=== PATIENT | female | born 1955 | race Asian ===

== ENCOUNTER 2020-01-19 08:36 | Inpatient (IN) ==
--- NOTE | 2020-01-19 09:10 | Emergency Department Note ---
Impression & Plan Hypertensive encephalopathy, Hypertensive emergency, Nausea and vomiting, Generalized weakness, Blurring of vision ED Provider Note CHIEF COMPLAINT: Headache, vomiting, high blood pressure HISTORY OF PRESENTING ILLNESS: This is a 64-year-old female with past medical history significant for hypertension, migraines, and depression, who presents to the emergency department by private vehicle with her daughter with complaints of headaches, nausea and vomiting, dizziness, and high blood pressure for the past 1 week. The symptoms have been getting progressively worse and became severe today. The patient does not speak any Uzbek and only speaks Mandarin Tuval[place], the patient's daughter provides most of the history. A Mandarin mobile patrol officer was also utilized to verify pertinent parts of the history. The patient's daughter states that she has had ongoing issues with uncontrolled hypertension for the past 13 years, she is on medications that were prescribed by her doctor in [place] and she states she has been taking these but they do not seem to be helping. She was evaluated in an emergency department 3 times last year for the same symptoms, and she was treated for the vomiting and headaches at that time. The patient's daughter does not know if she has had any imaging of her brain in the past. She does note that they were told her migraine headaches were because of the high blood pressure. She currently takes metoprolol tartrate 25 mg once a day and valsartan 80 mg once a day, however she states that she has been taking 2 of these for the past week, and she took 3 of these yesterday and today. She also notes that she is taking a combination of flupentixol and melitracen for nausea and vomiting, but she noticed that these are also antidepressant medicines and she is not sure why she was prescribed these. She denies any neck pain or stiffness. She states that she has some intermittent blurring of her vision, but she is able to read text on her daughter's phone. She states that the nausea and vomiting get worse with position changes and she feels better with her eyes closed. She denies any chest pain, shortness of breath, palpitations, or syncope. She denies any abdominal pain or back pain. REVIEW OF SYSTEMS: A complete 10 point review of systems was reviewed with the patient with pertinent positives and negatives as per history of present illness. All else were negative. PAST MEDICAL HISTORY: Hypertension, migraines, depression SOCIAL HISTORY: Lives at home with her daughter, she is from [place] and has been visiting her daughter here for the past 6 months, she denies tobacco use ALLERGIES: No known allergies PHYSICAL EXAM: CONSTITUTIONAL: Pleasant and cooperative. Nontoxic-appearing and in no acute distress, but appears uncomfortable from the pain and is shielding her eyes from the light. Mildly dehydrated. HEENT: Normocephalic, atraumatic. PERRL, EOM unable to be performed due to poor cooperation from the patient, there was no obvious nystagmus. TMs normal bilaterally with no hemotympanum. Pharynx normal. Tacky mucous membranes. NECK: Supple, full active range of motion without discomfort. No cervical adenopathy. No nuchal rigidity or meningismus. RESPIRATORY: Clear to auscultation bilaterally with no wheezing, crackles, rh onchi or stridor. Equal expansion bilaterally. CARDIOVASCULAR: Regular rate and rhythm with no murmurs, rubs or gallops. Normal peripheral perfusion. No edema. GASTROINTESTINAL: Soft, nontender, nondistended. No palpable masses or HSM. Bowel sounds present in all quadrants. MUSCULOSKELETAL: Full range of motion of all joints without discomfort. INTEGUMENTARY: No rash or other significant dermatologic conditions noted. NEUROLOGIC: Alert and oriented X 4 with normal affect. Cranial nerves II-XII grossly intact, no facial droop. No pronator drift. Luzvee-suku-[id number] testing intact. 5/5 strength in all 4 extremities. Sensation intact light touch in all 4 extremities. Generalized weakness with no focal deficit noted. ED COURSE AND MEDICAL DECISION MAKING: CC: Patient presenting with complaint of headache, vomiting, high blood pressure DIFFERENTIAL DIAGNOSIS: Includes, but not limited to hypertensive urgency/emergency, hypertensive encephalopathy, migraine headache, tension head ache, intracranial hemorrhage, cerebrovascular accident, electrolyte abnormality, thyroid abnormality, acute coronary syndrome, medication side effect, poor compliance with medication, among others. INTERPRETATION OF LABS: No leukocytosis, no anemia, normal platelets, hypokalemia, hyponatremia, and mild hypochloremia, normal renal function, normal liver enzymes. Negative troponin. Coagulation factors within normal limits. TSH within normal limits. UA shows 5-10 WBCs with 4+ bacteria, urine culture pending. IMAGING: HEAD CT NONCONTRAST CT DOSE: 978.74 mGy.cm HISTORY: Headache TECHNIQUE: Multiaxial CT images of the head were performed without the use of intravenous contrast. Automated exposure control was utilized for this study. A dose lowering technique was utilized adhering to the principles of ALARA. Comparison: None. Findings: The paranasal sinuses and mastoid air cells are clear. The calvarium and skull base are intact. The ventricles and sulci are within normal limits. There is no mass, hematoma, midline shift, or acute infarct. Impression: No acute intracranial abnormality. ----- HEAD & NECK CTA HISTORY: Headaches. Pt c/o hypertension urgency TECHNIQUE: Multiaxial CT images of the head were performed following the intravenous administration of contrast to evaluate the major cerebral vessels. Multiaxial CT images of the neck were also performed following the intravenous administration of contrast to evaluate the major cervical vessels. Maximum intensity projection images were also obtained. A dose lowering technique was utilized adhering to the principles of ALARA. COMPARISON: None. FINDINGS: There is no mass, hematoma, midline shift, or acute infarct. Visualized intracranial internal carotid arteries, distal vertebral arteries, and basilar artery are widely patent. There is no significant stenosis, occlusion, or aneurysm seen within the bilateral ACAs, MCAs, or business banker. The aortic arch and proximal great vessels are widely patent. There is no significant stenosis, occlusion, or dissection identified within the bilateral common carotid, internal carotid, or vertebral arteries. Mild calcified plaque at the aortic arch. Slightly hypoplastic right vertebral artery comparison to the left. Mild calcified plaque within the bilateral carotid siphons. IMPRESSION: 1. No significant stenosis, occlusion, or aneurysm within the [place]. 2. No significant stenosis, occlusion, or dissection identified within the carotid or vertebral arteries. EKG: Shows sinus bradycardia with a rate of 58 bpm, normal intervals, no ST or T wave abnormalities, no ectopy by my interpretation. No previous EKGs available for comparison. MEDICATION RECONCILIATION: I attest that I have personally reviewed the patient's current medication list. INITIAL VITAL SIGNS REVIEW: I reviewed the patient's initial vital signs and interpret them as follows: T: Afebrile; BP: Hypertensive; HR: Within normal limits; RR: Within normal limits; Pulse Ox: Within normal limits on room air. Blood pressure screening: The patient was found to have an elevated blood pressure and was admitted to the inpatient team for further management. MDM SUMMARY: Patient was evaluated at bedside, history and physical exam performed. Patient speaks only Mandarin [place], her daughter provided some translation as well as the translation tablet. Patient is alert and oriented, appears uncomfortable from the headache and is shielding her eyes from the light. She is very photophobic on pupillary exam. She was not able to cooperate with extraocular movements due to her discomfort. She complains of some blurry vision, but was able to read some words on her daughter's phone without much difficulty. She is able to distinguish between 1 and 2 fingers. No focal neurologic deficits noted on exam. Orders were placed at bedside for labs, UA, migraine cocktail with IV fluid bolus and IV Compazine, IV Benadryl, and IV Tylenol, EKG, CT of the head, CTA of the head and neck to evaluate for headache and vomiting. After confirming the patient's medications and noting that she is on metoprolol, 5 mg IV metoprolol was ordered to treat the elevated blood pressure. Patient discussed with Dr. Serrato, who agrees with my assessment, plan, and disposition. Labs and imaging reviewed as above, labs are notable for some electrolyte abnormalities including hypokalemia, hyponatremia and mild hypochloremia. Renal function is normal. There is no leukocytosis or anemia and platelets are normal. Troponin is negative. TSH is within normal limits. UA may be infection versus contaminated specimen, urine culture is pending. The patient denies any urinary symptoms and does not have any leukocytosis or fevers, will hold off on any treatment for now. CT and CTA imaging of the head and neck are unremarkable. EKG is negative for any acute ischemic changes. The patient had a transient improvement in her blood pressure after the IV metoprolol, however the blood pressure spiked back up and she continues to be symptomatic. She does note that her headache and nausea are improved. She did seem to have some mild extrapyramidal symptoms that were suspected to be related to the Compazine, this seems to be improving after the IV Benadryl. Potassium is being repleted with 40 mEq p.o. and 20 mEq IV. Her symptoms seem most consistent with a hypertensive urgency/emergency, and I did feel that she would benefit from admission. I spoke with Dr. Muse, [facility] Hospitalist, who agrees to evaluate the patient for admission. Patient reassessed multiple times throughout ED stay, she and her daughter were updated on all results and plan for admission, they verbalized understanding and were agreeable to this plan. The patient was stable at time of admission. The chart was completed utilizing [employer] Speech voice recognition software. Grammatical errors, random word insertions, pronoun errors, and incomplete sentences are an occasional consequence of this system due to software limitations, ambient noise, and hardware issues. Any formal questions or concerns about the content, text, or information contained within the body of this dictation should be directly addressed to the nurse practitioner for clarification. Past Med/Surg History Medical History (Updated 01/19/20 @ 17:40 by MARCELO Foster) Chronic nausea Uncontrolled hypertension Social History Preferred Language: Mandarin [place] Communication Ability: mandarin Production Material Coordinator Required: Yes Beliefs That Will Affect Care: None Current Living Situation: Family Other Information That Helps Us Care for You: No Feels Safe at Home: Yes Safety Concerns: Feels Safe At This Time Smoking Status: Never smoker Hx Alcohol Use: No Hx Substance Use: No Allergies Allergies Allergy/AdvReac Type Severity Reaction Status Date / Time No Known Allergies Allergy Unverified 01/19/20 11:31 Home Meds Home Medications Medication Instructions Recorded Confirmed metoprolol tartrate 12.5 mg PO BID 01/19/20 01/19/20 simvastatin 20 mg PO HS 01/19/20 01/19/20 valsartan 80 mg PO DAILY 01/19/20 01/19/20 Results & Data (ED) Vital Signs Vital Signs - 24 hr 01/19/20 08:41 01/19/20 09:39 01/19/20 10:55 Temperature 36.8 C Temperature Source Oral Pulse Rate 86 75 Pulse Rate [Apical] 66 Respiratory Rate 16 17 Blood Pressure 187/115 H 220/162 H Blood Pressure [Right Arm] 212/122 H Blood Pressure Mean 139 Blood Pressure Mean [Right Arm] 152 Pulse Oximetry 98 96 Oxygen Delivery Method Room Air Room Air Sepsis Recent Fever Within 48 Hours No Sepsis New/Unexplained Change in Mental Status No Sepsis Action Taken by Nursing No Action Required 01/19/20 11:02 Temperature Temperature Source Pulse Rate Pulse Rate [Apical] Respiratory Rate Blood Pressure Blood Pressure [Right Arm] 185/108 H Blood Pressure Mean Blood Pressure Mean [Right Arm] 133 Pulse Oximetry Oxygen Delivery Method Sepsis Recent Fever Within 48 Hours Sepsis New/Unexplained Change in Mental Status Sepsis Action Taken by Nursing Laboratory Data Result diagrams: 01/19/20 09:00 05/01/20 09:00 Lab Results 01/19/20 01/19/20 01/19/20 Range/Units 09:00 09:00 09:00 WBC 7.67 (4.8-10.8) K/uL RBC 4.58 (4.2-5.4) M/uL Hgb 15.0 (12.0-16.0) g/dL Hct 42.3 (37-47) % MCV 92.4 (80-100) fL MCH 32.8 (25-34) pg MCHC 35.5 (32-36) g/dL RDW Std Deviation 39.5 (36.4-46.3) fL RDW Coeff of [place] 11.7 (11.5-14.5) % Plt Count 291 (130-400) K/uL MPV 8.7 (7.4-10.4) fL Immature Gran % (Auto) 0.1 % Neut % (Auto) 74.0 % Lymph % (Auto) 20.5 % [place] % (Auto) 4.6 % Eos % (Auto) 0.5 % Baso % (Auto) 0.3 % Immature Gran # (Auto) 0.01 (0.00-0.02) K/uL Neut # (Auto) 5.68 (1.4-6.5) K/uL Lymph # (Auto) 1.57 (1.2-3.4) K/uL [place] # (Auto) 0.35 (0.11-0.59) K/uL Eos # (Auto) 0.04 (0-0.5) K/uL Baso # (Auto) 0.02 (0-0.2) K/uL PT 10.8 (9.0-12.0) Seconds INR 1.0 (0.9-1.1) APTT 28.5 (21.0-31.0) Seconds PTT Ratio 1.0 Sodium 130 L (136-145) mmol/L Potassium 3.1 L (3.5-5.1) mmol/L Chloride 96 L (98-107) mmol/L Carbon Dioxide 26 (21-32) mmol/L Anion Gap 8.0 (3-11) BUN 7 (7-18) mg/dl Creatinine 0.69 (0.6-1.2) mg/dl Est Cr Clr Drug Dosing 59.9 ml/min Est GFR ( Amer) 107.4 Est GFR (Non-Af Amer) 92.6 BUN/Creatinine Ratio 10.2 (10-20) Glucose 132 H (70-99) mg/dl Calcium 9.2 (8.5-10.1) mg/dl Magnesium 2.3 (1.8-2.4) mg/dl Total Bilirubin 0.3 (0.2-1) mg/dl AST 21 (15-37) U/L ALT 32 (12-78) U/L Alkaline Phosphatase 96 (45-117) U/L Troponin I < 0.015 (0-0.045) ng/ml Total Protein 8.8 H (6.4-8.2) gm/dl Albumin 4.1 (3.4-5.0) gm/dl Globulin 4.7 H (2.5-4.0) gm/dl Albumin/Globulin Ratio 0.9 (0.9-2) TSH 1.700 (0.300-4.500) uIu/ml Urine Color Urine Appearance (Clear) Urine pH (4.5-7.5) Ur Specific [place] (1.000-1.030) Urine Protein (Negative) Urine Glucose (UA) (Negative) Urine Ketones (Negative) Urine Blood (Negative) Urine Nitrite (Negative) Urine Bilirubin (Negative) Urine Urobilinogen (Negative) Ur Leukocyte Esterase (Negative) Urine WBC (Auto) (0-5) /hpf Urine RBC (Auto) (0-4) /hpf U Hyaline Cast (Auto) (0-5) /lpf U Epithel Cells (Auto) (0-5) /lpf Urine Bacteria (Auto) (Negative) 01/19/20 Range/Units 10:05 WBC (4.8-10.8) K/uL RBC (4.2-5.4) M/uL Hgb (12.0-16.0) g/dL Hct (37-47) % MCV (80-100) fL MCH (25-34) pg MCHC (32-36) g/dL RDW Std Deviation (36.4-46.3) fL RDW Coeff of [place] (11.5-14.5) % Plt Count (130-400) K/uL MPV (7.4-10.4) fL Immature Gran % (Auto) % Neut % (Auto) % Lymph % (Auto) % [place] % (Auto) % Eos % (Auto) % Baso % (Auto) % Immature Gran # (Auto) (0.00-0.02) K/uL Neut # (Auto) (1.4-6.5) K/uL Lymph # (Auto) (1.2-3.4) K/uL [place] # (Auto) (0.11-0.59) K/uL Eos # (Auto) (0-0.5) K/uL Baso # (Auto) (0-0.2) K/uL PT (9.0-12.0) Seconds INR (0.9-1.1) APTT (21.0-31.0) Seconds PTT Ratio Sodium (136-145) mmol/L Potassium (3.5-5.1) mmol/L Chloride (98-107) mmol/L Carbon Dioxide (21-32) mmol/L Anion Gap (3-11) BUN (7-18) mg/dl Creatinine (0.6-1.2) mg/dl Est Cr Clr Drug Dosing ml/min Est GFR ( Amer) Est GFR (Non-Af Amer) BUN/Creatinine Ratio (10-20) Glucose (70-99) mg/dl Calcium (8.5-10.1) mg/dl Magnesium (1.8-2.4) mg/dl Total Bilirubin (0.2-1) mg/dl AST (15-37) U/L ALT (12-78) U/L Alkaline Phosphatase (45-117) U/L Troponin I (0-0.045) ng/ml Total Protein (6.4-8.2) gm/dl Albumin (3.4-5.0) gm/dl Globulin (2.5-4.0) gm/dl Albumin/Globulin Ratio (0.9-2) TSH (0.300-4.500) uIu/ml Urine Color Yellow Urine Appearance Clear (Clear) Urine pH 8.5 H (4.5-7.5) Ur Specific [place] 1.010 (1.000-1.030) Urine Protein Negative (Negative) Urine Glucose (UA) Negative (Negative) Urine Ketones Negative (Negative) Urine Blood Negative (Negative) Urine Nitrite Negative (Negative) Urine Bilirubin Negative (Negative) Urine Urobilinogen Negative (Negative) Ur Leukocyte Esterase Trace H (Negative) Urine WBC (Auto) 5-10 H (0-5) /hpf Urine RBC (Auto) 0-4 (0-4) /hpf U Hyaline Cast (Auto) 0 (0-5) /lpf U Epithel Cells (Auto) 5-10 H (0-5) /lpf Urine Bacteria (Auto) 4+ H (Negative) Administered Medications Discontinued Medications Amlodipine Besylate (Norvasc) 5 mg PO NOW ONE Stop: 01/19/20 11:23 Last Admin: 01/19/20 12:08 Dose: 5 mg Documented by: [id number] Diphenhydramine HCl (Benadryl) 50 mg IV NOW STA Stop: 01/19/20 09:49 Last Admin: 01/19/20 10:26 Dose: 50 mg Documented by: [id number] Famotidine (Pepcid) 20 mg PO NOW STA Stop: 01/19/20 13:49 Last Admin: 01/19/20 14:26 Dose: 20 mg Documented by: [id number] Sodium Chloride (Nss 1000ml) 1,000 mls @ 999 mls/hr IV .Q1H1M HENRIQUE Stop: 01/19/20 10:30 Last Infusion: 01/19/20 13:39 Dose: 0 mls/hr Documented by: [id number] Admin: 01/19/20 10:36 Dose: 999 mls/hr Documented by: [id number] Potassium Chloride (K Kyle / Wtr) 10 meq in 100 mls @ 100 mls/hr IV Q1H HENRIQUE Stop: 01/19/20 11:59 Last Infusion: 01/19/20 13:39 Dose: 0 mls/hr Documented by: [id number] Admin: 01/19/20 11:34 Dose: 100 mls/hr Documented by: [id number] Infusion: 01/19/20 11:31 Dose: 100 mls/hr Documented by: [id number] Admin: 01/19/20 10:31 Dose: 100 mls/hr Documented by: [id number] Acetaminophen (Ofirmev) 1,000 mg in 100 mls @ 400 mls/hr IV NOW STA Stop: 01/19/20 10:02 Last Infusion: 01/19/20 10:36 Dose: 0 mls/hr Documented by: [id number] Admin: 01/19/20 10:26 Dose: 400 mls/hr Documented by: [id number] Magnesium Sulfate/Dextrose (Magnesium Sulfate / D5w) 1 gm in 100 mls @ 100 mls/hr IV ONE ONE Stop: 01/19/20 10:47 Last Infusion: 01/19/20 11:31 Dose: 0 mls/hr Documented by: [id number] Admin: 01/19/20 10:29 Dose: 100 mls/hr Documented by: [id number] Ioversol (Optiray 320 125ml) 120 ml IV ONCE PRN PRN Reason: Interaction Checking Stop: 01/23/20 10:11 Last Admin: 01/19/20 10:13 Dose: 120 ml Documented by: [id number] Labetalol HCl (Normodyne) 20 mg IV ONCE STA Stop: 01/19/20 09:31 Last Admin: 01/19/20 09:39 Dose: Not Given Documented by: [id number] Metoprolol Tartrate (Lopressor) 5 mg IV NOW STA Stop: 01/19/20 09:32 Last Admin: 01/19/20 09:39 Dose: 5 mg Documented by: [id number] Potassium Chloride (Klor-Con M20) 40 meq PO NOW STA Stop: 01/19/20 09:48 Last Admin: 01/19/20 10:23 Dose: 40 meq Documented by: [id number] Prochlorperazine (Compazine) 10 mg IV NOW STA Stop: 01/19/20 09:20 Last Admin: 01/19/20 09:39 Dose: 10 mg Documented by: [id number] Discharge Plan Visit Data *Final* Discharge Date/Time: 01/19/20 11:56 Chief Complaint: Hypertension Stated Complaint: HIGH BLOOD PRESSURE, VOMITING ED Provider: Moy Serrato ED Midlevel Provider: Milagro Murphy Discharge Problem: Hypertensive encephalopathy, Hypertensive emergency, Nausea and vomiting, Generalized weakness, Blurring of vision Patient Disposition: Admitted As Inpatient Discharge Instructions Interventions: ED Discharge Assessment Last Done: 01/19/20 11:56 Discharge Problem: Nausea and vomiting Qualifiers: Vomiting type: unspecified Vomiting Intractability: intractable Qualified Code(s): R11.2 - Nausea with vomiting, unspecified
[2020-01-19] MEDS ORDERED: PROCHLORPERAZINE 5 MG/ML 2 ML VIAL IV STA (09:19)
[2020-01-19] MEDS ORDERED: SODIUM CHLORIDE 0.9% 1000ML 1,000 ML IV SCH (09:30)
[2020-01-19] MEDS ORDERED: LABETALOL HCL IV 5 MG/ML 20ML IV STA (09:30)
[2020-01-19] MEDS ORDERED: METOPROLOL TARTRATE 1 MG/ML VIAL IV STA (09:31)
[2020-01-19 09:33] LABS: Basophils # (auto) 0.02 K/uL (0-0.2); Basophils % (auto) 0.3 %; Eosinophils # (auto) 0.04 K/uL (0-0.5); Eosinophils % (auto) 0.5 %; Hematocrit (blood only) 42.3 % (37-47); Immature Granulocytes # (auto) 0.01 K/uL (0.00-0.02); Immature Granulocytes % (auto) 0.1 %; Lymphocytes # (auto) 1.57 K/uL (1.2-3.4); Lymphocytes % (auto) 20.5 %; Mean Corpuscular Hemoglobin 32.8 pg (25-34); Mean Corpuscular Hgb Conc 35.5 g/dL (32-36); Mean Corpuscular Volume 92.4 fL (80-100); Mean Platelet Volume 8.7 fL (7.4-10.4); Monocytes # (auto) 0.35 K/uL (0.11-0.59); Monocytes % (auto) 4.6 %; Neutrophils # (auto) 5.68 K/uL (1.4-6.5); Platelet Count 291 K/uL (130-400); RDW Coefficient of Variation 11.7 % (11.5-14.5); RDW Standard Deviation 39.5 fL (36.4-46.3); Red Blood Count 4.58 M/uL (4.2-5.4); White Blood Count 7.67 K/uL (4.8-10.8)
[2020-01-19 09:42] LABS: Albumin Level 4.1 gm/dl (3.4-5.0); BUN Creatinine Ratio 10.2 (10-20); Blood Urea Nitrogen 7 mg/dl (7-18); Calcium 9.2 mg/dl (8.5-10.1); Carbon Dioxide 26 mmol/L (21-32); Chloride 96 mmol/L (98-107); Creatinine Clr Calc Pharmacy 59.9 ml/min; Est GFR (African American) 107.4; Est GFR (Non-African American) 92.6; Glucose 132 mg/dl (70-99); Magnesium 2.3 mg/dl (1.8-2.4); Potassium 3.1 mmol/L (3.5-5.1); Sodium 130 mmol/L (136-145)
[2020-01-19] MEDS ORDERED: POTASSIUM CHLORIDE 20 MEQ TABCR PO STA (09:47)
[2020-01-19] MEDS ORDERED: ACETAMINOPHEN 1,000 MG/100 ML VIAL IV STA (09:48)
[2020-01-19] MEDS ORDERED: DiphenhydrAMINE HCL 50 MG/ML VIAL IV STA (09:48)
[2020-01-19] MEDS ORDERED: MAGNESIUM SULFATE / D5W 1 GM/100 ML BAG IV ONE (09:48)
[2020-01-19 09:50] LABS: Partial Thromboplastin Time 28.5 Seconds (21.0-31.0); Prothrombin Time 10.8 Seconds (9.0-12.0)
[2020-01-19 09:52] LABS: Alanine Aminotransferase 32 U/L (12-78); Albumin Globulin Ratio 0.9 (0.9-2); Alkaline Phosphatase 96 U/L (45-117); Aspartate Aminotransferase 21 U/L (15-37); Bilirubin,Total 0.3 mg/dl (0.2-1); Globulin 4.7 gm/dl (2.5-4.0); Total Protein 8.8 gm/dl (6.4-8.2); Troponin I < 0.015 ng/ml (0-0.045)
[2020-01-19] MEDS ORDERED: OPTIRAY 320 125ml IV PRN (10:12)
[2020-01-19 10:24] LABS: Appearance Urine Clear (Clear); Bacteria Urine Automated 4+ (Negative); Bilirubin Urine Negative (Negative); Blood Urine Negative (Negative); Cast Urine Automated 0 /lpf (0-5); Color Urine Yellow; Glucose Urine UA Negative (Negative); Ketones Urine Negative (Negative); Leukocyte Esterase Urine Trace (Negative); Nitrite Urine Negative (Negative); Protein Urine Negative (Negative); RBC Urine Automated 0-4 /hpf (0-4); Urobilinogen Urine Negative (Negative); pH Urine 8.5 (4.5-7.5)
--- NOTE | 2020-01-19 10:24 | CT Scan Report ---
HEAD CT NONCONTRAST CT DOSE: 978.74 mGy.cm HISTORY: Headache TECHNIQUE: Multiaxial CT images of the head were performed without the use of intravenous contrast. A utomated exposure control was utilized for this study. A dose lowering technique was utilized adheri ng to the principles of ALARA. Comparison: None. Findings: The paranasal sinuses and mastoid air cells are clear. The calvarium and skull base are int act. The ventricles and sulci are within normal limits. There is no mass, hematoma, midline shift, or acute infarct. Impression: No acute intracranial abnormality. ACT 112: Negative or not required by law. Electronically signed by: Ricardo May M.D. 01/19/2020 10:22 AM
--- NOTE | 2020-01-19 10:29 | CT Scan Report ---
HEAD & NECK CTA HISTORY: Headaches. Pt c/o hypertension urgency TECHNIQUE: Multiaxial CT images of the head were performed following the intravenous administration o f contrast to evaluate the major cerebral vessels. Multiaxial CT images of the neck were also perform ed following the intravenous administration of contrast to evaluate the major cervical vessels. Maxim um intensity projection images were also obtained. A dose lowering technique was utilized adhering to the principles of ALARA. COMPARISON: None. FINDINGS: There is no mass, hematoma, midline shift, or acute infarct. Visualized intracranial internal carotid arteries, distal vertebral arteries, and basilar artery are widely patent. There is no significant s tenosis, occlusion, or aneurysm seen within the bilateral ACAs, MCAs, or varnish dipper. The aortic arch and proximal great vessels are widely patent. There is no significant stenosis, occ lusion, or dissection identified within the bilateral common carotid, internal carotid, or vertebral arteries. Mild calcified plaque at the aortic arch. Slightly hypoplastic right vertebral artery claudine rison to the left. Mild calcified plaque within the bilateral carotid siphons. IMPRESSION: 1. No significant stenosis, occlusion, or aneurysm within the [place]. 2. No significant stenosis, occlusion, or dissection identified within the carotid or vertebral arter ies. ACT 112: Negative or not required by law. Electronically signed by: Ricardo May M.D. 01/19/2020 10:34 AM
--- NOTE | 2020-01-19 10:29 | CT Scan Report ---
HEAD & NECK CTA HISTORY: Headaches. Pt c/o hypertension urgency TECHNIQUE: Multiaxial CT images of the head were performed following the intravenous administration o f contrast to evaluate the major cerebral vessels. Multiaxial CT images of the neck were also perform ed following the intravenous administration of contrast to evaluate the major cervical vessels. Maxim um intensity projection images were also obtained. A dose lowering technique was utilized adhering to the principles of ALARA. COMPARISON: None. FINDINGS: There is no mass, hematoma, midline shift, or acute infarct. Visualized intracranial internal carotid arteries, distal vertebral arteries, and basilar artery are widely patent. There is no significant s tenosis, occlusion, or aneurysm seen within the bilateral ACAs, MCAs, or mechanical systems design engineer. The aortic arch and proximal great vessels are widely patent. There is no significant stenosis, occ lusion, or dissection identified within the bilateral common carotid, internal carotid, or vertebral arteries. Mild calcified plaque at the aortic arch. Slightly hypoplastic right vertebral artery claudine rison to the left. Mild calcified plaque within the bilateral carotid siphons. IMPRESSION: 1. No significant stenosis, occlusion, or aneurysm within the [place]. 2. No significant stenosis, occlusion, or dissection identified within the carotid or vertebral arter ies. ACT 112: Negative or not required by law. Electronically signed by: Ricardo May M.D. 01/19/2020 10:34 AM
[2020-01-19] MEDS: POTASSIUM CHLORIDE / WTR 10 MEQ/100 ML PLCT IV SCH ×2 (10:31→11:34)
--- NOTE | 2020-01-19 11:21 | History & Physical Report ---
Date of Service January 19, 2020 Assessment & Plan (1) Hypertensive encephalopathy: Encephalopathy due to headache, nausea and vomiting for the last week. No other sign of end organ damage from labs Amlodipine 5mg PO daily now. Continue QAM. Will avoid thiazide diuretics given current hypokalemia Since she plans on going back to [place] will continue on her usual metoprolol rather than switching to carvedilol. Dose dependant on heart rate. Continue valsartan 160 mg PO daily (previously on 80mg PO daily but she had already increased this for the last 2 days). (2) Hypertensive emergency: as above (3) Blurring of vision: appears to now be resolved. Suspected secondary to above (4) Hyperlipidemia: Simvastatin 20 mg HS ([place] home medication), will hold currently due to weakness (5) Generalized weakness: PT/OT evals prior to discharge (6) Nausea and vomiting: I am unclear on her [place] medication for this as translated to Droperidol 0.5mg and Mexiletine combination medication which does not exist in the . Will prescribe ondansetron 4mg IV q6h PRN and recommend she is prescribed PO dose outpatient as she is staying in the [place] pending flights resuming to [place]. (7) DVT prophylaxis: SCDs Given likely short stay will avoid chemical VTE prophyalxis currently Admission and Anticipated Discharge Date Admission Date: 01/19/2020 Anticipated date of discharge: 01/20/20 History of Present Illness Chief Complaint: Headache, vision blurring, nausea, vomiting Primary Care Provider: NO PCP Angela Vieyra is a 64 year old female who presented to the ER with 1 week history of headache, nausea, vomiting. History is somewhat limited as she is a non-Setsw[place] speaker (speaks Mandarin) but is here with her daughter who is translating in addition to using an truck rental clerk with the iPad in the ER. Her daughter notes a problem with hypertension for approximately 30 years which has always been difficult to control but she takes medication for this which she has from [place]. Her mother was supposed to travel back to [place] 2 weeks from now where she resides but her flight was cancelled due to COVID-19 therefore she is unsure how long she will stay in the [place]. For the last 4 years her mother has had a problem with nausea and vomiting for which she takes an additional medication daily (translated to Droperidol 0.5mg and Mexiletine combination pill). She reports her mother has been having increased problems with her blood pressure over the last week with associated worsening of her headache, nausea and vomiting. Her mother has been self treating this with increasing her blood pressure medications. With the help of the truck rental clerk these appear to be Valsartan 80mg PO daily (although she took a total of 3 yesterday and 2 already this morning) and Metoprolol 12.5mg PO daily (although she took 25mg this morning). In addition she takes simvastatin 20mg for elevated cholesterol. For the past 2-3 days her nausea and vomiting have become so severe that she has been unable to eat or drink any significant quantities of food or drink. She has also noted vision blurring which is unusual for her without vision loss, this has resolved since treatment in the ER. She notes her headache is aching all the time, non pulsating, Frontal, bilateral without radiation from her neck. Currently improved after IV fluids and IV metoprolol given in the ER. Allergies Allergy/AdvReac Type Severity Reaction Status Date / Time No Known Allergies Allergy Unverified 01/19/20 11:31 Home Medications Home Medications Medication Instructions Recorded Confirmed Type metoprolol tartrate 12.5 mg PO BID 01/19/20 01/19/20 History simvastatin 20 mg PO HS 01/19/20 01/19/20 History valsartan 80 mg PO DAILY 01/19/20 01/19/20 History Past Med/Surg History Medical History Chronic nausea Uncontrolled hypertension Social History Preferred Language: Mandarin [place] Communication Ability: mandarin At Risk Specialist Required: Yes Beliefs That Will Affect Care: None Current Living Situation: Family Other Information That Helps Us Care for You: No Feels Safe at Home: Yes Safety Concerns: Feels Safe At This Time Smoking Status: Never smoker Hx Alcohol Use: No Hx Substance Use: No Review of Systems Review of Systems: All systems reviewed & are unremarkable except as noted in HPI & below Physical Exam Constitutional: well developed, cooperative, comfortable and + lethargic; no acute distress Eyes: PERRL, conjunctivae normal, anicteric sclerae no nystagmus ENMT: external ear and nose normal, oropharynx normal Neck: trachea midline, no thyromegaly Respiratory: normal respiratory effort, lungs clear to auscultation Cardiovascular: RRR, no murmur, no edema Gastrointestinal (Abdomen): normal bowel sounds, soft, nontender, no hepatosplenomegaly Musculoskeletal: no cyanosis or clubbing, extremities motor strength 5/5 Skin: no rashes, warm and dry Neurologic: moves all extremities and awake; no focal motor deficits and not confused Speech / Cognition: normal speech Motor/Sensory: + pronator drift (bilateral equal); no tremor Psychiatric: A+Ox3, euthymic affect Genitourinary: no CVA tenderness Lymphatic: no cervical or axillary lymphadenopathy Results & Data Results & Data ([facility]) Vital Signs (Past 12 Hours) Vital Signs Temp Pulse Pulse Resp BP BP Pulse Ox 01/19/20 11:02 185/108 H 01/19/20 10:55 66 17 212/122 H 96 01/19/20 09:39 75 220/162 H 01/19/20 08:41 36.8 C 86 16 187/115 H [address] NONCONTRAST Impression: No acute intracranial abnormality. HEAD & NECK CTA IMPRESSION: 1. No significant stenosis, occlusion, or aneurysm within the [place]. 2. No significant stenosis, occlusion, or dissection identified within the carotid or vertebral arteries. ECG Indication: weakness Rate (beats per minute): 58 Rhythm: sinus bradycardia Findings: no acute ischemic change Comparison ECG Date: no prior available Code Status & VTE Plan Code Status Full as discussed with the patient and daughter with the help of forms analysis manager VTE Prophylaxis Plan VTE Prophylaxis will be ordered: Yes Reason for no VTE drug order: Treatment not indicated PG Care Time/CCT Total # of Minutes Spent Total Time Spent with Patient: Total time spent is greater than 50% in coordination of care (as documented) at patient's floor/unit and/or counseling patient: Coding Level of Care Code 73557 Initial Inpt Care Lvl 3 Diagnoses Hypertensive encephalopathy I67.4 Hypertensive emergency I16.1 Blurring of vision H53.8 Hyperlipidemia E78.5 Generalized weakness R53.1 Nausea and vomiting R11.2 Vomiting Intractability: intractable Vomiting type: unspecified DVT prophylaxis Z29.9 (1) Nausea and vomiting Vomiting Intractability: intractable Vomiting type: unspecified Qualified Code(s): R11.2 - Nausea with vomiting, unspecified
[2020-01-19] MEDS ORDERED: AMLODIPINE BESYLATE 5 MG TAB PO ONE (11:22)
[2020-01-19] MEDS ORDERED: ONDANSETRON INJ 2 MG/ML 2 ML VIAL IV PRN (13:37)
[2020-01-19] MEDS ORDERED: ACETAMINOPHEN 325 MG TAB PO PRN (13:37)
[2020-01-19] MEDS ORDERED: FAMOTIDINE 20 MG TAB PO STA (13:48)
--- NOTE | 2020-01-19 15:33 | Electrocardiogram Report ---
Test Reason : Blood Pressure : / mmHG Vent. Rate : 058 BPM Atrial Rate : 058 BPM P-R Int : 176 ms QRS Dur : 080 ms QT Int : 442 ms P-R-T Axes : 061 -03 054 degrees QTc Int : 433 ms Sinus bradycardia Otherwise normal ECG No previous ECGs available Confirmed by Danny Adkins ([id number]) on 01/19/2020 3:33:29 PM Referred By: REFERRED SELF Confirmed By:Danny Adkins
[2020-01-19] MEDS ORDERED: ZOLPIDEM TARTRATE 5 MG TAB PO PRN (20:52)
[2020-01-20] MEDS: METOPROLOL TARTRATE 25 MG TAB PO SCH ×2 (00:12→08:21)
[2020-01-20 08:37] LABS: Basophils # (auto) 0.02 K/uL (0-0.2); Basophils % (auto) 0.2 %; Eosinophils # (auto) 0.04 K/uL (0-0.5); Eosinophils % (auto) 0.5 %; Hematocrit (blood only) 39.9 % (37-47); Immature Granulocytes # (auto) 0.01 K/uL (0.00-0.02); Immature Granulocytes % (auto) 0.1 %; Lymphocytes # (auto) 1.77 K/uL (1.2-3.4); Lymphocytes % (auto) 21.3 %; Mean Corpuscular Hemoglobin 32.3 pg (25-34); Mean Corpuscular Hgb Conc 35.1 g/dL (32-36); Mean Corpuscular Volume 91.9 fL (80-100); Mean Platelet Volume 8.6 fL (7.4-10.4); Monocytes # (auto) 0.38 K/uL (0.11-0.59); Monocytes % (auto) 4.6 %; Neutrophils % (auto) 73.3 %; Platelet Count 271 K/uL (130-400); RDW Coefficient of Variation 11.8 % (11.5-14.5); RDW Standard Deviation 39.9 fL (36.4-46.3); Red Blood Count 4.34 M/uL (4.2-5.4); White Blood Count 8.32 K/uL (4.8-10.8)
[2020-01-20] MEDS ORDERED: VALSARTAN 80 MG TAB PO SCH (09:00)
[2020-01-20] MEDS ORDERED: AMLODIPINE BESYLATE 5 MG TAB PO SCH (09:00)
[2020-01-20 09:07] LABS: Albumin Level 4.1 gm/dl (3.4-5.0); BUN Creatinine Ratio 14.9 (10-20); Bilirubin,Total 0.5 mg/dl (0.2-1); Calcium 9.1 mg/dl (8.5-10.1); Creatinine Clr Calc Pharmacy 60.8 ml/min; Est GFR (African American) 107.9; Est GFR (Non-African American) 93.1; Globulin 4.1 gm/dl (2.5-4.0); Potassium 3.6 mmol/L (3.5-5.1); Total Protein 8.2 gm/dl (6.4-8.2)
--- NOTE | 2020-01-20 15:31 | Discharge Summary ---
Date of Service January 20, 2020 Admission HPI Per Admitting Provider Angela Vieyra is a 64 year old female who presented to the ER with 1 week history of headache, nausea, vomiting. History is somewhat limited as she is a non- Polish speaker (speaks Mandarin) but is here with her daughter who is translating in addition to using an project officer with the iPad in the ER. Her daughter notes a problem with hypertension for approximately 30 years which has always been difficult to control but she takes medication for this which she has from [place]. Her mother was supposed to travel back to [place] 2 weeks from now where she resides but her flight was cancelled due to COVID-19 therefore she is unsure how long she will stay in the . For the last 4 years her mother has had a problem with nausea and vomiting for which she takes an additional medication daily (translated to Droperidol 0.5mg and Mexiletine combination pill). She reports her mother has been having increased problems with her blood pressure over the last week with associated worsening of her headache, nausea and vomiting. Her mother has been self treating this with increasing her blood pressure medications. With the help of the project officer these appear to be Valsartan 80mg PO daily (although she took a total of 3 yesterday and 2 already this morning) and Metoprolol 12.5mg PO daily (although she took 25mg this morning). In addition she takes simvastatin 20mg for elevated cholesterol. For the past 2-3 days her nausea and vomiting have become so severe that she has been unable to eat or drink any significant quantities of food or drink. She has also noted vision blurring which is unusual for her without vision loss, this has resolved since treatment in the ER. She notes her headache is aching all the time, non pulsating, Frontal, bilateral without radiation from her neck. Currently improved after IV fluids and IV metoprolol given in the ER. Principal Diagnosis Hypertension / hypertensive urgency Discharge Exam Constitutional WD/WN, vitals as above Eyes EOM intact bilaterally; no conjunctival abnormality ENMT external ear and nose normal, oropharynx normal Neck trachea midline, no thyromegaly normal visual inspection Respiratory normal respiratory effort, lungs clear to auscultation no respiratory distress Cardiovascular RRR, no murmur, no edema Gastrointestinal (Abdomen) Inspection/Auscultation: abdomen normal to inspection; abdomen not distended Musculoskeletal no cyanosis or clubbing, extremities motor strength 5/5 Skin no rashes, warm and dry Neurologic moves all extremities and awake Psychiatric Orientation: alert, oriented to person and cooperative Discharge Data Allergies Allergy/AdvReac Type Severity Reaction Status Date / Time No Known Allergies Allergy Unverified 01/19/20 11:31 Consultations 01/19/20 11:14 ED Decision to Admit Stat 01/19/20 13:37 Consult Case Management - Discharge Planning Routine Ordered Studies 01/19/20 09:19 CT head/brain wo con Stat 01/19/20 09:49 CT angio head w con Stat CT angio neck with con Stat Hospital Course (1) Hypertensive encephalopathy: Encephalopathy due to headache, nausea and vomiting for the last week. No other sign of end organ damage from labs - Added amlodipine 5mg PO daily. - Increased both her valsartan to 160 mg and her metoprolol 25 mg PO BID as she had done this at home prior to admission. (2) Hypertensive emergency: As above (3) Blurring of vision: Now resolved prior to discharge. Suspected secondary to above. (4) Hyperlipidemia: - Continue simvastatin 20 mg HS ([place] home medication). (5) Generalized weakness: PT/OT evals prior to discharge (6) Nausea and vomiting: I am unclear on her [place] medication for this as translated to Droperidol 0.5mg and Mexiletine combination medication which does not exist in the [place]. - Prescribed ondansetron 4 mg PO Q6h PRN (7) DVT prophylaxis: SCDs Total Time Total Time Spent Total Time Spent (In Minutes): 35 Discharge Plan Discharge Items Patient Disposition: Home - Self-Care Reason For Visit: HEADACHE, NAUSEA, VOMITING Discharge Diagnosis: High blood pressure Activity: Resume your previous activity Non-emergency contact: Primary Care Provider Call non-emergency contact if: your symptoms worsen Follow-up/Referrals: Pam Bernal [Physician] - (Please see Dr. Bernal in the office if you would like to follow up with a PCP in [place].) PCP,NO [Primary Care Provider] - Diet: Heart Healthy Addtl Attending Provider Instructions: We started a new blood pressure medication called amlodipine which should help your blood pressure improve. Take it 1 time per day. We also sent a prescription for Zofran which you can use as needed for nausea. Please follow up with Dr. Bernal here in [place] if you will be here for more than 1-2 weeks. Pending Studies at Discharge: No Stand-Alone Forms: [facility], Smoking Cessation Medications and DC Order Prescriptions: New amlodipine [Norvasc] 5 mg Tablet 5 mg PO QAM Qty: 30 RF: 0 ondansetron HCl [Zofran] 4 mg tablet 4 mg PO TID PRN (Reason: nausea and vomiting) 3 Days Qty: 20 RF: 0 Continued simvastatin 20 mg Tablet 20 mg PO HS RF: 0 Changed valsartan 80 mg Tablet 160 mg PO DAILY Qty: 0 RF: 0 metoprolol tartrate 25 mg Tablet 25 mg PO BID Qty: 0 RF: 0 Discharge Orders: Discharge Order (Routine); Ordered 01/20/20 Ordered By: Kain Yoon Admission Data Admit Date/Time: 01/19/20 11:20 Attending Provider: Kain Yoon Admit Provider: Manjinder Muse Primary Care Provider: PCP,NO Other Providers: Kain Yoon Other Interventions: Discharge Summary Assessment (RN) Last Done: 01/20/20 12:17 DC Date/Time DO NOT enter until pt leaves facility: 01/20/20 12:48 Coding Level of Care Code D/C Day Management >30 mins Diagnoses Hypertensive encephalopathy I67.4 Hypertensive emergency I16.1 Blurring of vision H53.8 Hyperlipidemia E78.5 Generalized weakness R53.1 Nausea and vomiting R11.2 Vomiting type: unspecified Vomiting Intractability: intractable DVT prophylaxis Z29.9
== END 2020-01-20 12:48 | disposition home or self-care (01) | DRG 78 ==
LOC: ED 08:36 → 2N 11:20 → SUATTDRO 11:20 → 2N 11:56

== ENCOUNTER 2020-01-23 16:17 | Inpatient (IN) ==
[2020-01-23] MEDS ORDERED: METOCLOPRAMIDE HCL INJ 5 MG/ML 2 ML VIAL IV STA (16:34)
[2020-01-23] MEDS ORDERED: DiphenhydrAMINE HCL 50 MG/ML VIAL IV STA (16:34)
[2020-01-23] MEDS ORDERED: ACETAMINOPHEN 325 MG TAB PO STA (16:34)
[2020-01-23] MEDS ORDERED: LABETALOL HCL IV 5 MG/ML 20ML IV PRN ×2 (16:34→18:25)
--- NOTE | 2020-01-23 16:37 | Emergency Department Note ---
Impression & Plan Hypertensive urgency, Nausea & vomiting, Headache ED Provider Note NAME: AR MENDES AGE: 64 SEX: F : 1955 ARRIVES VIA: Walk-In INFORMANT: Patient, daughter ED PROVIDER(S): Christopher Higgins MD Chief Complaint: Headache, hypertension HPI: Patient has had diffuse headache. Strong in nature. This is been ongoing since 1 day post discharge. The patient was discharged on January 18 due to concern for hypertensive encephalopathy. Patient has been compliant with medications. Nothing is made her symptoms any better. Patient does complain of a "chest discomfort." The patient has had associated nausea and vomiting today. No recent falls or head injuries. Patient did have an increase in her valsartan and metoprolol. Norvasc was added to her medication regimen. No recent travel. Patient reportedly had a negative COVID test. No shortness of breath. No leg swelling or weight gain. No double or blurry vision. ROS: See HPI for pertinent positives and negatives. A total of 10 systems were reviewed and otherwise negative. Past medical history: See below Surgical history: See below Social history: See below Physical Exam: GENERAL: Anxious in appearance, wearing a mask. EYE EXAM: Normal conjunctiva. PERRL, no anisocoria and EOM's grossly intact w/o pain. NECK: Supple, no nuchal rigidity, no adenopathy, non-tender. No signs of meningismus. LUNGS: Clear to auscultation. Normal chest wall mechanics. HEART: NSR, no MRG. ABDOMEN: Abdomen soft, non-tender, normo-active bowel sounds, no masses, no rebound or guarding. BACK: No CVA TTP. SKIN: No rashes and no bruising. UPPER EXTREMITIES: Upper extremities are grossly normal. LOWER EXTREMITIES: Grossly normal, no edema. Bilateral upper extremity tremors. NEURO EXAM: A&O x3, cranial nerves II-XII grossly intact, normal speech, moves all 4 extremities on command . Differential diagnoses: Benign hypertension, hypertensive emergency, car diovascular pathology, toxicologic, pheochromocytoma, electrolyte abnormality, renal disease, endorgan damage, as well as other pathologies. Course: Patient was seen and evaluated the bedside. Daughter was also present and did provide history. EKG: Indication: Chest discomfort Sinus tachycardia, rate of 102, normal intervals, normal axis, no obvious ST changes. Comparison EKG January 19, 2020 shows that the rate is faster today. Morphology relatively unchanged. Imaging Studies: Radiology results as stated below per my review in the radiologist's interpretation: HEAD CT NONCONTRAST CT DOSE: 537.48 mGy.cm HISTORY: Hypertension, vomiting TECHNIQUE: Multiaxial CT images of the head were performed without the use of intravenous contrast. Automated exposure control was utilized for this study. A dose lowering technique was utilized adhering to the principles of ALARA. Comparison: None. Findings: The paranasal sinuses and mastoid air cells are clear. The calvarium and skull base are intact. The ventricles and sulci are within normal limits. There is no mass, hematoma, midline shift, or acute infarct. Impression: No acute intracranial abnormality. ACT 112: Negative or not required by law. Electronically signed by: Ricardo May M.D. 01/23/2020 5:17 PM Dictated: 01/23/201713 Transcribed: 01/23/201713 XR chest 1V portable HISTORY: Hypertension COMPARISON: None. FINDINGS: The lungs are clear. Cardiac silhouette is normal in size. No pleural effusions. No pneumothorax. Mild calcified plaque within the descending thoracic aorta. IMPRESSION: No acute process. ACT 112: Negative or not required by law. Electronically signed by: Ricardo May M.D. 01/23/2020 5:11 PM Dictated: 01/23/201708 Transcribed: 01/23/201708 Cardiac monitoring: An order was placed for continuous cardiac monitoring. The monitor shows a rate of 101 with sinus tachycardia rhythm. MDM: Patient does present with concern for hypertension, nausea vomiting and head ache. No recent falls no blood thinners. Patient reportedly has been compliant with medications at home. Blood was obtained and headache cocktail was ordered along with IV labetalol. CT does not show much in terms of acute change at this time. Blood work shows a normal white count H&H and platelet count. Patient does have hyponatremia but this appears unchanged from prior. Troponin is nondetectable. LFTs unremarkable. Magnesium is high at 2.7. Patient does have some bilateral upper extremity tremors. Patient is not having a complex seizure. Patient is awake alert and does follow commands. CT the head is negative. Chest x-ray is clear. On reassessment patient does feel improved. Given the concern for her initial symptoms with associated hypertension which improved with headache cocktail as well as hypertensive medication I did discuss the patient with the on-call hospitalist. Patient was admitted to the medicine service by Dr. Rizo [facility] hospitalist. Critical Care: I have personally spent 42 minutes of critical care time in direct management of this patient. This includes bedside care, interpretation of diagnostic studies, and testing, discussion with consultants, patient, and family members, and other require inpatient management activities. This 42 minutes is in excess of all separately billable procedures. Past Med/Surg History Social History Preferred Language: Virtual Paper Communication Ability: Effective Spread Cutter Required: Yes Beliefs That Will Affect Care: None marital status: Current Living Situation: Family Feels Safe at Home: Yes Smoking Status: Never smoker Hx Alcohol Use: No Hx Substance Use: No Allergies Allergies Allergy/AdvReac Type Severity Reaction Status Date / Time No Known Allergies Allergy Verified 01/23/20 17:02 Home Meds Home Medications Medication Instructions Recorded Confirmed simvastatin 20 mg PO HS 01/19/20 01/23/20 ondansetron HCl [Zofran] 4 mg PO TID PRN 01/23/20 01/23/20 Previous Rx's Medication Instructions Recorded amlodipine [Norvasc] 5 mg PO QAM #30 tab 01/20/20 metoprolol tartrate 25 mg PO BID #0 tab 01/20/20 valsartan 160 mg PO DAILY #0 tab 01/20/20 Results & Data (ED) Vital Signs Vital Signs - 24 hr 01/23/20 16:21 01/23/20 16:38 01/23/20 16:40 Temperature 36.7 C Temperature Source Oral Pulse Rate 116 H 93 H 93 H Pulse Rate [Right Finger] Pulse Rate from SpO2 Sensor Respiratory Rate 16 12 12 Respiratory Effort / Characteristics Non-Labored Respiratory Depth Normal Blood Pressure 172/119 H 183/108 H Blood Pressure [Left Arm] Blood Pressure Mean 136 143 Blood Pressure Mean [Left Arm] Blood Pressure Position Sitting Blood Pressure Position [Left Arm] Pulse Oximetry 99 Oxygen Delivery Method Room Air Sepsis Recent Fever Within 48 Hours No Sepsis Action Taken by Nursing No Action Required 01/23/20 16:51 01/23/20 16:52 01/23/20 16:53 Temperature Temperature Source Pulse Rate 107 H Pulse Rate [Right Finger] 103 H 88 Pulse Rate from SpO2 Sensor 107 H Respiratory Rate 18 21 20 Respiratory Effort / Characteristics Respiratory Depth Blood Pressure 206/136 H Blood Pressure [Left Arm] 206/136 H 151/87 H Blood Pressure Mean 168 Blood Pressure Mean [Left Arm] 159 108 Blood Pressure Position Blood Pressure Position [Left Arm] Lying Pulse Oximetry 98 98 98 Oxygen Delivery Method Sepsis Recent Fever Within 48 Hours Sepsis Action Taken by Nursing 01/23/20 16:54 01/23/20 17:00 01/23/20 17:19 Temperature Temperature Source Pulse Rate 77 70 73 Pulse Rate [Right Finger] Pulse Rate from SpO2 Sensor 77 69 73 Respiratory Rate 15 14 13 Respiratory Effort / Characteristics Respiratory Depth Blood Pressure 151/87 H 165/90 H 153/81 H Blood Pressure [Left Arm] Blood Pressure Mean 111 123 91 Blood Pressure Mean [Left Arm] Blood Pressure Position Blood Pressure Position [Left Arm] Pulse Oximetry 98 98 97 Oxygen Delivery Method Sepsis Recent Fever Within 48 Hours Sepsis Action Taken by Nursing 01/23/20 17:30 01/23/20 17:31 Temperature Temperature Source Pulse Rate 75 75 Pulse Rate [Right Finger] Pulse Rate from SpO2 Sensor 76 75 Respiratory Rate 15 17 Respiratory Effort / Characteristics Respiratory Depth Blood Pressure 152/84 H Blood Pressure [Left Arm] Blood Pressure Mean 111 Blood Pressure Mean [Left Arm] Blood Pressure Position Blood Pressure Position [Left Arm] Pulse Oximetry 97 97 Oxygen Delivery Method Sepsis Recent Fever Within 48 Hours Sepsis Action Taken by Long-Term Medications Current Medication List: was personally reviewed by me Laboratory Data Attestation: I reviewed the patient's lab results. Result diagrams: 01/23/20 16:40 01/23/20 16:40 Lab Results 01/23/20 01/23/20 Range/Units 16:40 16:40 WBC 7.29 (4.8-10.8) K/uL RBC 4.77 (4.2-5.4) M/uL Hgb 15.3 (12.0-16.0) g/dL Hct 43.6 (37-47) % MCV 91.4 (80-100) fL MCH 32.1 (25-34) pg MCHC 35.1 (32-36) g/dL RDW Std Deviation 39.1 (36.4-46.3) fL RDW Coeff of Hamlet 11.6 (11.5-14.5) % Plt Count 271 (130-400) K/uL MPV 8.7 (7.4-10.4) fL Immature Gran % (Auto) 0.1 % Neut % (Auto) 65.7 % Lymph % (Auto) 28.4 % Isabel[place] % (Auto) 5.2 % Eos % (Auto) 0.5 % Baso % (Auto) 0.1 % Immature Gran # (Auto) 0.01 (0.00-0.02) K/uL Neut # (Auto) 4.78 (1.4-6.5) K/uL Lymph # (Auto) 2.07 (1.2-3.4) K/uL [place] # (Auto) 0.38 (0.11-0.59) K/uL Eos # (Auto) 0.04 (0-0.5) K/uL Baso # (Auto) 0.01 (0-0.2) K/uL Sodium 129 L (136-145) mmol/L Potassium 3.5 (3.5-5.1) mmol/L Chloride 95 L (98-107) mmol/L Carbon Dioxide 24 (21-32) mmol/L Anion Gap 9.0 (3-11) BUN 10 (7-18) mg/dl Creatinine 0.68 (0.6-1.2) mg/dl Est Cr Clr Drug Dosing Not Reportable Est GFR ( Amer) 107.9 Est GFR (Non-Af Amer) 93.1 BUN/Creatinine Ratio 14.3 (10-20) Glucose 128 H (70-99) mg/dl Calcium 9.2 (8.5-10.1) mg/dl Magnesium 2.7 H (1.8-2.4) mg/dl Total Bilirubin 0.2 (0.2-1) mg/dl AST 28 (15-37) U/L ALT 49 (12-78) U/L Alkaline Phosphatase 106 (45-117) U/L Troponin I < 0.015 (0-0.045) ng/ml Total Protein 9.2 H (6.4-8.2) gm/dl Albumin 4.8 (3.4-5.0) gm/dl Globulin 4.4 H (2.5-4.0) gm/dl Albumin/Globulin Ratio 1.1 (0.9-2) Administered Medications Labetalol HCl (Normodyne) 10 mg IV Q15M PRN PRN Reason: Hypertension Stop: 02/22/20 16:33 Last Admin: 01/23/20 16:58 Dose: 10 mg Documented by: [id number] Cosigned by: [id number] Discontinued Medications Acetaminophen (Tylenol) 650 mg PO NOW STA Stop: 01/23/20 16:35 Last Admin: 01/23/20 17:19 Dose: 650 mg Documented by: [id number] Diphenhydramine HCl (Benadryl) 25 mg IV NOW STA Stop: 01/23/20 16:35 Last Admin: 01/23/20 16:49 Dose: 25 mg Documented by: [id number] Sodium Chloride (Nss 1000ml) 1,000 mls @ 999 mls/hr IV .Q1H1M HENRIQUE Stop: 01/23/20 17:45 Last Infusion: 01/23/20 17:50 Dose: 0 mls/hr Documented by: [id number] Admin: 01/23/20 16:48 Dose: 999 mls/hr Documented by: [id number] Metoclopramide HCl (Reglan) 10 mg IV NOW STA Stop: 01/23/20 16:35 Last Admin: 01/23/20 16:49 Dose: 10 mg Documented by: [id number] Blood Pressure Blood Pressure Findings: Elevated blood pressure Blood Pressure Disposition: further management by hospitalist Discharge Plan Visit Data Chief Complaint: Hypertension Stated Complaint: high blood pressure ED Provider: Christopher Higgins Discharge Problem: Hypertensive urgency, Nausea & vomiting, Headache Forms Stand Alone Forms: Reimage Prescriptions Prescriptions: No Action simvastatin 20 mg Tablet 20 mg PO HS RF: 0 amlodipine [Norvasc] 5 mg Tablet 5 mg PO QAM Qty: 30 RF: 0 valsartan 80 mg Tablet 160 mg PO DAILY Qty: 0 RF: 0 metoprolol tartrate 25 mg Tablet 25 mg PO BID Qty: 0 RF: 0 ondansetron HCl [Zofran] 4 mg tablet 4 mg PO TID PRN (Reason: Nausea) RF: 0 Discharge Problem: Nausea & vomiting Qualifiers: Vomiting type: unspecified Vomiting Intractability: non-intractable Qualified Code(s): R11.2 - Nausea with vomiting, unspecified Headache Qualifiers: Headache type: unspecified Headache chronicity pattern: acute headache Intractability: not intractable Qualified Code(s): R51 - Headache
[2020-01-23] MEDS ORDERED: SODIUM CHLORIDE 0.9% 1000ML 1,000 ML IV SCH (16:45)
[2020-01-23 16:48] LABS: Basophils # (auto) 0.01 K/uL (0-0.2); Basophils % (auto) 0.1 %; Eosinophils # (auto) 0.04 K/uL (0-0.5); Eosinophils % (auto) 0.5 %; Hematocrit (blood only) 43.6 % (37-47); Hemoglobin 15.3 g/dL (12.0-16.0); Immature Granulocytes # (auto) 0.01 K/uL (0.00-0.02); Immature Granulocytes % (auto) 0.1 %; Lymphocytes # (auto) 2.07 K/uL (1.2-3.4); Lymphocytes % (auto) 28.4 %; Mean Corpuscular Hemoglobin 32.1 pg (25-34); Mean Corpuscular Hgb Conc 35.1 g/dL (32-36); Mean Corpuscular Volume 91.4 fL (80-100); Mean Platelet Volume 8.7 fL (7.4-10.4); Monocytes # (auto) 0.38 K/uL (0.11-0.59); Monocytes % (auto) 5.2 %; Neutrophils # (auto) 4.78 K/uL (1.4-6.5); Neutrophils % (auto) 65.7 %; Platelet Count 271 K/uL (130-400); RDW Coefficient of Variation 11.6 % (11.5-14.5); RDW Standard Deviation 39.1 fL (36.4-46.3); Red Blood Count 4.77 M/uL (4.2-5.4); White Blood Count 7.29 K/uL (4.8-10.8)
[2020-01-23 17:06] LABS: Alanine Aminotransferase 49 U/L (12-78); Albumin Level 4.8 gm/dl (3.4-5.0); Aspartate Aminotransferase 28 U/L (15-37); BUN Creatinine Ratio 14.3 (10-20); Blood Urea Nitrogen 10 mg/dl (7-18); Calcium 9.2 mg/dl (8.5-10.1); Carbon Dioxide 24 mmol/L (21-32); Chloride 95 mmol/L (98-107); Est GFR (African American) 107.9; Est GFR (Non-African American) 93.1; Glucose 128 mg/dl (70-99); Magnesium 2.7 mg/dl (1.8-2.4); Potassium 3.5 mmol/L (3.5-5.1); Sodium 129 mmol/L (136-145)
[2020-01-23 17:11] LABS: Albumin Globulin Ratio 1.1 (0.9-2); Alkaline Phosphatase 106 U/L (45-117); Bilirubin,Total 0.2 mg/dl (0.2-1); Globulin 4.4 gm/dl (2.5-4.0); Total Protein 9.2 gm/dl (6.4-8.2); Troponin I < 0.015 ng/ml (0-0.045)
--- NOTE | 2020-01-23 17:12 | XRay Report ---
XR chest 1V portable HISTORY: Hypertension COMPARISON: None. FINDINGS: The lungs are clear. Cardiac silhouette is normal in size. No pleural effusions. No pneumot horax. Mild calcified plaque within the descending thoracic aorta. IMPRESSION: No acute process. ACT 112: Negative or not required by law. Electronically signed by: Ricardo May M.D. 01/23/2020 5:11 PM
--- NOTE | 2020-01-23 17:18 | CT Scan Report ---
HEAD CT NONCONTRAST CT DOSE: 537.48 mGy.cm HISTORY: Hypertension, vomiting TECHNIQUE: Multiaxial CT images of the head were performed without the use of intravenous contrast. A utomated exposure control was utilized for this study. A dose lowering technique was utilized adheri ng to the principles of ALARA. Comparison: None. Findings: The paranasal sinuses and mastoid air cells are clear. The calvarium and skull base are int act. The ventricles and sulci are within normal limits. There is no mass, hematoma, midline shift, or acute infarct. Impression: No acute intracranial abnormality. ACT 112: Negative or not required by law. Electronically signed by: Ricardo May M.D. 01/23/2020 5:17 PM
--- NOTE | 2020-01-23 17:58 | History & Physical Report ---
Date of Service January 23, 2020 Assessment & Plan (1) Hypertensive emergency: Headache, nausea, emesis are likely due to uncontrolled HTN. Symptoms improved following IV labetalol in the ER. This is her 2nd admission in <1 week for similar complaints/issues. Since labetalol was so effective at reducing her BP will change her metoprolol to PO labetalol 100mg BID to start. Cont amlodipine 5mg daily. Cont valsartan. Will perform secondary HTN w/u - start with renal dopplers, r/o KARINA. Check AM renin/brandie levels. Will obtain echo to r/o structural heart disease along with serial troponins to exclude ischemic event. Given her palpitations and sweats with BP spikes consider 24-hour urine for metanephrines. Will defer for now. I cannot rule out that anxiety is contributing to BP spikes as daughter reports her mother has significant anxiety. In fact her PCP placed her on lexapro 5mg for such. Place on telemetry in the event she needs IV prn BP meds. (2) Headache: Likely 2nd to HTN emergency. Improved with marked reduction in BP in the ER. CT head neg. Recent CTA head/neck neg. If headaches persist check sed rate, r/o temporal arteritis. (3) Nausea & vomiting: Resolved. Presumably 2nd to HTN emergency. Abdominal exam is wnl. Follow. Control the BPs. (4) Hyperlipidemia: Cont statin agent. (5) UTI (urinary tract infection): Urine cx from recent admission w/ serratia and e.coli. Was taking keflex prescribed by her PCP. Will contrinue such. (6) Hyponatremia: Etiology? vomiting? but she only had emesis in the ER. Check serum osm, urine osm, urine Na. Recent TSH wnl. Patient just started on lexapro so doubt SSRI induced SIADH as previous Na levels were also low. Re-eval once studies return. (7) Elevated total protein: etiology? if this persists consider SPEP/UPEP - r/o MM. (8) DVT prophylaxis: heparin 5000 BID daughter extensively updated at bedside History of Present Illness Chief Complaint: nausea, emesis, headache, elevated blood pressure Primary Care Provider: NO PCP 64yo Indian female with long-standing hypertension dating back 30 years presents from home due to concerns of elevated blood pressures, headaches, palpitations, a general unwell feeling, anxiety, and then nausea/emesis upon arrival in the [facility] ER. The patient's daughter was in the ER during my admission assessment and she provided all of the historical information. According to records the patient was hospitalized at [facility] on 01/18 and 01/19 for hypertensive emergency. Amlodipine was added to her anti-hypertensive regimen and her valsartan dose was increased. BPs improved and she was discharged home with her daughter. She felt well most of the day of discharge but later that night started to have headaches again. The daughter provided me a BP log from home. Most BPs on Wednesday, Wednesday and Wednesday were 130s to 160s systolic. Diastolics were <90. However, her systolics today were 170s or higher and diastolics were >100. No chest pain or dyspnea at any time since her recent hospitalization. Multiple times, however, the daughter described her mother having what sounds like palpitations. The patient also has sweats and feels warm when her BPs spike. She apparently has also not been eating well recently. Her PCP at [facility] recently started her on lexapro 5mg daily for anxiety as well as keflex for UTI (urine cx from recent admission grew 2 pathogens). In the ER the patient was given labetalol with marked improvement in systolic BP to the 150s. By the time of my assessment her headache was improved and her nausea/vomiting had stopped. Allergies Allergy/AdvReac Type Severity Reaction Status Date / Time No Known Allergies Allergy Verified 01/23/20 17:02 Home Medications Home Medications Medication Instructions Recorded Confirmed Type simvastatin 20 mg PO HS 01/19/20 01/23/20 History amlodipine [Norvasc] 5 mg PO QAM #30 tab 01/20/20 01/23/20 Rx metoprolol tartrate 25 mg PO BID #0 tab 01/20/20 01/23/20 Rx valsartan 160 mg PO DAILY #0 tab 01/20/20 01/23/20 Rx ondansetron HCl [Zofran] 4 mg PO TID PRN 01/23/20 01/23/20 History Past Med/Surg History Family History Mother Hypertension Social History (Updated 01/23/20 @ 20:11 by Manjinder Rizo) Preferred Language: Mandarin Indian Communication Ability: Effective Hris Analyst Required: Yes Beliefs That Will Affect Care: None marital status: Current Living Situation: Family current occupational status: retired 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 Other Information That Helps Us Care for You: No other: patient/ are currently living with their daughter ([place]) Feels Safe at Home: Yes Safety Concerns: Feels Safe At This Time Smoking Status: Never smoker Hx Alcohol Use: No Hx Substance Use: No Review of Systems Review of Systems: ROS obtained via daughter Constitutional: + fatigue and + anorexia; no fever and no chills Eyes: no worsening vision Ear, Nose, Mouth, Throat: no nasal congestion and no sore throat Respiratory: no cough and no dyspnea Cardiovascular: + palpitations; no chest pain, no orthopnea, no paroxysmal nocturnal dyspnea and no edema Gastrointestinal: + nausea and + vomiting; no abdominal pain and no diarrhea/loose stools Genitourinary: no dysuria Musculoskeletal: no joint pain Integumentary: no rash Neurologic: no localized weakness Psychiatric: + anxiety Endocrine: no h/o diabetes Hematologic / Lymphatic: no easy bruising Physical Exam Constitutional: well developed and well nourished; no acute distress Eyes: PERRL ENMT: external ear and nose normal, oropharynx normal Neck: trachea midline, no thyromegaly Respiratory: normal respiratory effort, lungs clear to auscultation Cardiovascular: Rate/Rhythm: regular rate and regular rhythm Heart Sounds: normal S1 and normal S2; no murmur Vessels: posterior tibial pulses present, dorsalis pedis pulses present and radial pulses present (2+ and symmetric ); no JVD Extremities: no edema Gastrointestinal (Abdomen): normal bowel sounds, soft, nontender, no hepatosplenomegaly Musculoskeletal: no cyanosis or clubbing, extremities motor strength 5/5 Skin: no rashes, warm and dry Neurologic: deep tendon reflexes 2+ bilaterally and moves all extremities; no focal motor deficits Psychiatric: Orientation: alert Lymphatic: no cervical lymphadenopathy Results & Data Results & Data ([facility]) Vital Signs (Past 12 Hours) Vital Signs Temp Pulse Pulse Resp BP BP Pulse Ox 01/23/20 17:31 75 17 97 01/23/20 17:30 75 15 152/84 H 97 01/23/20 17:19 73 13 153/81 H 97 01/23/20 17:00 70 14 165/90 H 98 01/23/20 16:54 77 15 151/87 H 98 01/23/20 16:53 88 20 151/87 H 98 01/23/20 16:52 107 H 21 206/136 H 98 01/23/20 16:51 103 H 18 206/136 H 98 01/23/20 16:40 93 H 12 01/23/20 16:38 93 H 12 183/108 H 01/23/20 16:21 36.7 C 116 H 16 172/119 H 99 Laboratory Results Laboratory Results - last 24 hr 01/23/20 01/23/20 01/23/20 16:40 16:40 16:40 WBC 7.29 RBC 4.77 Hgb 15.3 Hct 43.6 MCV 91.4 MCH 32.1 MCHC 35.1 RDW Std Deviation 39.1 RDW Coeff of Hamlet 11.6 Plt Count 271 MPV 8.7 Immature Gran % (Auto) 0.1 Neut % (Auto) 65.7 Lymph % (Auto) 28.4 [place] % (Auto) 5.2 Eos % (Auto) 0.5 Baso % (Auto) 0.1 Immature Gran # (Auto) 0.01 Neut # (Auto) 4.78 Lymph # (Auto) 2.07 [place] # (Auto) 0.38 Eos # (Auto) 0.04 Baso # (Auto) 0.01 Sodium 129 L Potassium 3.5 Chloride 95 L Carbon Dioxide 24 Anion Gap 9.0 BUN 10 Creatinine 0.68 Est Cr Clr Drug Dosing Not Reportable Est GFR ( Amer) 107.9 Est GFR (Non-Af Amer) 93.1 BUN/Creatinine Ratio 14.3 Glucose 128 H Osmolality 278 L Calcium 9.2 Magnesium 2.7 H Total Bilirubin 0.2 AST 28 ALT 49 Alkaline Phosphatase 106 Troponin I < 0.015 Total Protein 9.2 H Albumin 4.8 Globulin 4.4 H Albumin/Globulin Ratio 1.[address] head - negative for acute findings chest x-ray - no acute findings EKG - my reading - sinus tach, no ST changes Code Status & VTE Plan Code Status full VTE Prophylaxis Plan VTE Prophylaxis will be ordered: Yes PG Care Time/CCT Total # of Minutes Spent Total Time Spent with Patient: Total time spent is greater than 50% in coordination of care (as documented) at patient's floor/unit and/or counseling patient: Coding Level of Care Code 17899 Initial Inpt Care Lvl 2 Diagnoses Hypertensive emergency I16.1 Headache R51 Headache chronicity pattern: acute headache Headache type: unspecified Intractability: not intractable Nausea & vomiting R11.2 Vomiting Intractability: non-intractable Vomiting type: unspecified Hyperlipidemia E78.2 Hyperlipidemia type: mixed hyperlipidemia UTI (urinary tract infection) N30.00 Hematuria presence: without hematuria Urinary tract infection type: acute cystitis Hyponatremia E87.1 Elevated total protein R77.8 DVT prophylaxis Z29.9 (1) UTI (urinary tract infection) Hematuria presence: without hematuria Urinary tract infection type: acute cystitis Qualified Code(s): N30.00 - Acute cystitis without hematuria (2) Headache Headache chronicity pattern: acute headache Headache type: unspecified Intractability: not intractable Qualified Code(s): R51 - Headache (3) Hyperlipidemia Hyperlipidemia type: mixed hyperlipidemia Qualified Code(s): E78.2 - Mixed hyperlipidemia (4) Nausea & vomiting Vomiting Intractability: non-intractable Vomiting type: unspecified Qualified Code(s): R11.2 - Nausea with vomiting, unspecified
[2020-01-23] MEDS ORDERED: ACETAMINOPHEN 325 MG TAB PO PRN (20:38)
[2020-01-23] MEDS ORDERED: NITROGLYCERIN SL 0.4 MG/TAB TAB SL PRN (20:38)
[2020-01-23] MEDS: SIMVASTATIN 20 MG TAB PO SCH (21:40)
[2020-01-23] MEDS: cephALEXin 500 MG CAP PO SCH (21:40)
[2020-01-23] MEDS: LABETALOL HCL 100 MG TAB PO SCH (21:40)
[2020-01-23] MEDS: HEPARIN SOD 5,000 UNIT/0.5 ML VIAL SQ SCH (21:41)
[2020-01-23] MEDS: ONDANSETRON INJ 2 MG/ML 2 ML VIAL IV PRN (21:51)
[2020-01-24] MEDS ORDERED: METOCLOPRAMIDE HCL INJ 5 MG/ML 2 ML VIAL IV STA (02:24)
[2020-01-24] MEDS: ONDANSETRON INJ 2 MG/ML 2 ML VIAL IV PRN ×3 (03:35→16:57)
[2020-01-24] MEDS ORDERED: PROCHLORPERAZINE 5 MG in SYRINGE 4 ML IV ONE ×2 (06:45→12:00)
--- NOTE | 2020-01-24 07:46 | Ultrasound Report ---
US duplex renal artery CLINICAL HISTORY: 64 years-old Female presenting with hypertensive emergency, refractory HTN. TECHNIQUE: Real-time grayscale and color and spectral Doppler ultrasound imaging of the kidneys was p erformed. COMPARISON: None. FINDINGS: RIGHT: Normal echogenicity with preserved corticomedullary differentiation. Normal cortical thickness. Right kidney measures 9.1 cm. No hydronephrosis. No convincing evidence of calculus or mass. Spectral analysis: Intrarenal resistive indices range from 0.62 to 0.65. Normal intrarenal arterial waveforms. Renal art mamie patent with peak systolic velocity 99 cm/s proximally, 65 cm/s in the midportion, and 96 cm/s dis tally. Renal vein patent. LEFT: Normal echogenicity with preserved corticomedullary differentiation. Normal cortical thickness. Left kidney measures 9.9 cm. No hydronephrosis. No convincing evidence of calculus or mass. Spectral analysis: Intrarenal resistive indices range from 0.55 to 0.67. Normal intrarenal arterial waveforms. Renal art mamie patent with peak systolic velocity 65 cm/s proximally, 71 cm/s in the midportion, and 96 cm/s dis tally. Renal vein patent. Abdominal aorta: Patent. Peak systolic velocity 84-86 cm/s. Ratio of right renal artery PSV/aortic PSV: 1.2. Ratio of left renal artery PSV/aortic PSV: 1.1. Bladder: Not evaluated. Other: None. Reference ranges: Normal main renal artery peak systolic velocity less than 180 cm/s. Ratio of renal artery PSV to aort ic PSV less than 3.5 equates to normal or less than 60% stenosis. Only one of the two criteria listed needs to be met for diagnosis. IMPRESSION: 1. No evidence of renal artery stenosis. ACT 112: Negative or not required by law. Electronically signed by: Yevgeniy Ashton M.D. 01/24/2020 7:44 AM
[2020-01-24] MEDS: VALSARTAN 80 MG TAB PO SCH (08:06)
[2020-01-24] MEDS: HEPARIN SOD 5,000 UNIT/0.5 ML VIAL SQ SCH ×2 (08:06→20:24)
[2020-01-24] MEDS: AMLODIPINE BESYLATE 5 MG TAB PO SCH (08:07)
[2020-01-24] MEDS: LABETALOL HCL 100 MG TAB PO SCH ×2 (08:07→20:24)
[2020-01-24] MEDS: cephALEXin 500 MG CAP PO SCH ×2 (08:07→20:24)
[2020-01-24] MEDS: ESCITALOPRAM OXALATE 10 MG TAB PO SCH (08:07)
--- NOTE | 2020-01-24 09:00 | Electrocardiogram Report ---
Test Reason : Blood Pressure : / mmHG Vent. Rate : 102 BPM Atrial Rate : 102 BPM P-R Int : 176 ms QRS Dur : 078 ms QT Int : 326 ms P-R-T Axes : 084 -12 040 degrees QTc Int : 424 ms Poor data quality, interpretation may be adversely affected Sinus tachycardia Left atrial enlargement Borderline ECG When compared with ECG of 19-JAN-2020 09:46, Vent. rate has increased BY 44 BPM Otherwise no significant change Confirmed by Willam Post ([id number]) on 01/24/2020 9:00:19 AM Referred By: REFERRED SELF Confirmed By:Willam Post
[2020-01-24] MEDS ORDERED: DiphenhydrAMINE HCL 50 MG/ML VIAL IV STA (11:50)
--- NOTE | 2020-01-24 14:43 | XCELERA ---
[id number]
[2020-01-24] MEDS: SIMVASTATIN 20 MG TAB PO SCH (20:25)
--- NOTE | 2020-01-24 23:12 | Hospitalist Progress Note ---
Date of Service January 24, 2020 Assessment & Plan (1) Hypertensive emergency: Hypertension has been difficult to control. Unsure if her nausea and vomiting are related to this as she has recently changed her outpatient which she takes for 2 years: deanxit. This is a medication that is not approved in the [place]. It contains flupentixol 0.5mg (or flupenthixol, an antipsychotic) and melitracen 10mg. She does not take droperidol. will continue labetalol, valsartan and norvasc. She may benefit from switching some of her meds to evening doses. I wonder if her nausea and vomiting is making her BP difficult to treat as she is not tolerating her mediciations. Will continue on same dose of medicine throughout the day and will recheck in AM. If BP is elevated, may consider a thiazide. Since labetalol was so effective at reducing her BP will change her metoprolol to PO labetalol 100mg BID to start. Cont amlodipine 5mg daily. Cont valsartan. Renal artery stenosis is negative. (2) Headache: Likely 2nd to HTN emergency. Improved with marked reduction in BP in the ER. CT head neg. Recent CTA head/neck neg. If headaches persist check sed rate, r/o temporal arteritis. (3) Nausea & vomiting: Returned. As stated above, she is not taking her deanxit, that this is making her symptoms worse. Will switch to compazine and continue lexapro. (4) Hyperlipidemia: Cont statin agent. (5) UTI (urinary tract infection): Urine cx from recent admission w/ serratia and e.coli. Was taking keflex prescribed by her PCP. Will contrinue such. (6) Hyponatremia: Likely SIADH, will recommend to continue to monitor as an outpatient. (7) Elevated total protein: etiology? if this persists consider SPEP/UPEP - r/o MM. will defer to PCP. (8) DVT prophylaxis: heparin 5000 BID daughter extensively updated at bedside Spent 120 minutes with patient. This included house cleaner supervisor line, discussion with daughter on phone, and in person. Admission and Anticipated Discharge Date Admission Date: January 23, 2020 Subjective Patient is a poor historian. Patient only speaks mandarin. Patient interrupts the house cleaner supervisor multiple times. She states she continues to have nausea and vomiting today. Also had discussion with daughter who speaks slovenian, she was able to come in to hospital and bring medications for her. Review of Systems Review of Systems: All systems reviewed & are unremarkable except as noted in HPI & below Physical Exam Physical Exam: Constitutional: well developed and well nourished; no acute distress Eyes: PERRL ENMT: external ear and nose normal, oropharynx normal Neck: trachea midline, no thyromegaly Respiratory: normal respiratory effort, lungs clear to auscultation Cardiovascular: Rate/Rhythm: regular rate and regular rhythm Heart Sounds: normal S1 and normal S2; no murmur Vessels: posterior tibial pulses present, dorsalis pedis pulses present and radial pulses present (2+ and symmetric ); no JVD Extremities: no edema Gastrointestinal (Abdomen): normal bowel sounds, soft, nontender, no hepatosplenomegaly Musculoskeletal: no cyanosis or clubbing, extremities motor strength 5/5 Skin: no rashes, warm and dry Neurologic: deep tendon reflexes 2+ bilaterally and moves all extremities; no focal motor deficits Psychiatric: Orientation: alert Lymphatic: no cervical lymphadenopathy Results & Data Results & Data ([facility]) Vital Signs (Past 12 Hours) Vital Signs Temp Pulse Resp BP Pulse Ox 01/24/20 16:14 36.8 C 81 18 170/88 H 98 01/24/20 14:15 36.6 C 79 20 129/72 96 01/24/20 12:13 36.7 C 85 18 132/68 97 PG Care Time/CCT Total # of Minutes Spent Total Time Spent with Patient: Total time spent is greater than 50% in coordination of care (as documented) at patient's floor/unit and/or counseling patient: Prolonged Care Time Prolonged Care Time: Yes Total Prolonged Care Time: 120 From 10:00 to 12:00 Coding Level of Care Code 34449 Subseq Hosp Care Lvl 3 Diagnoses Hypertensive emergency I16.1 Headache R51 Headache chronicity pattern: acute headache Headache type: unspecified Intractability: not intractable Nausea & vomiting R11.2 Vomiting Intractability: non-intractable Vomiting type: unspecified Hyperlipidemia E78.2 Hyperlipidemia type: mixed hyperlipidemia UTI (urinary tract infection) N30.00 Hematuria presence: without hematuria Urinary tract infection type: acute cystitis Hyponatremia E87.1 Elevated total protein R77.8 DVT prophylaxis Z29.9 Additional Codes Prolonged Care Time - Prolonged Care Time: Yes ([id number]) Time Spent (min) 120 (1) UTI (urinary tract infection) Hematuria presence: without hematuria Urinary tract infection type: acute cystitis Qualified Code(s): N30.00 - Acute cystitis without hematuria (2) Headache Headache chronicity pattern: acute headache Headache type: unspecified Intractability: not intractable Qualified Code(s): R51 - Headache (3) Hyperlipidemia Hyperlipidemia type: mixed hyperlipidemia Qualified Code(s): E78.2 - Mixed hyperlipidemia (4) Nausea & vomiting Vomiting Intractability: non-intractable Vomiting type: unspecified Qualified Code(s): R11.2 - Nausea with vomiting, unspecified
[2020-01-25] MEDS: cephALEXin 500 MG CAP PO SCH ×2 (08:51→20:21)
[2020-01-25] MEDS: AMLODIPINE BESYLATE 5 MG TAB PO SCH (08:51)
[2020-01-25] MEDS: VALSARTAN 80 MG TAB PO SCH (08:52)
[2020-01-25] MEDS: ESCITALOPRAM OXALATE 10 MG TAB PO SCH (08:52)
[2020-01-25] MEDS: LABETALOL HCL 100 MG TAB PO SCH ×2 (08:52→20:20)
[2020-01-25] MEDS: HEPARIN SOD 5,000 UNIT/0.5 ML VIAL SQ SCH ×2 (08:52→20:21)
[2020-01-25] MEDS ORDERED: CHLORTHALIDONE 25 MG TAB PO SCH (10:30)
[2020-01-25 11:08] LABS: Estimated Average Glucose 128 mg/dl; Hemoglobin A1C 6.1 % (4.5-5.6)
[2020-01-25 11:18] LABS: BUN Creatinine Ratio 16.2 (10-20); Calcium 8.3 mg/dl (8.5-10.1); Creatinine Clr Calc Pharmacy 59.1 ml/min; Est GFR (African American) 106.9; Est GFR (Non-African American) 92.2; Potassium 3.1 mmol/L (3.5-5.1)
[2020-01-25] MEDS: SODIUM CHLORIDE 1 GM TABLET PO SCH ×2 (13:14→20:20)
[2020-01-25] MEDS: POTASSIUM CHLORIDE 20 MEQ TABCR PO SCH ×2 (13:14→20:21)
[2020-01-25] MEDS: SIMVASTATIN 20 MG TAB PO SCH (20:20)
--- NOTE | 2020-01-25 23:21 | Hospitalist Progress Note ---
Date of Service January 25, 2020 Assessment & Plan (1) Hypertensive emergency: Hypertension has been difficult to control. Unsure if her nausea and vomiting are related to this as she has recently changed her outpatient which she takes for 2 years: deanxit. This is a medication that is not approved in the [place]. It contains flupentixol 0.5mg (or flupenthixol, an antipsychotic) and melitracen 10mg. She does not take droperidol. will continue labetalol, valsartan and norvasc. She may benefit from switching some of her meds to evening doses. will move norvasc to the evening gradually. I wonder if her nausea and vomiting is making her BP difficult to treat as she is not tolerating her mediciations. Will continue same dose as BP is better controlled. Since labetalol was so effective at reducing her BP will change her metoprolol to PO labetalol 100mg BID to start. Cont amlodipine 5mg daily. Cont valsartan. Renal artery stenosis is negative. (2) Headache: Likely 2nd to HTN emergency. Improved with marked reduction in BP in the ER. CT head neg. Recent CTA head/neck neg. If headaches persist check sed rate, r/o temporal arteritis. (3) Nausea & vomiting: Returned. As stated above, she is not taking her deanxit, that this is making her symptoms worse. Will switch to compazine and continue lexapro. (4) Hyperlipidemia: Cont statin agent. (5) UTI (urinary tract infection): Urine cx from recent admission w/ serratia and e.coli. Was taking keflex prescribed by her PCP. Will contrinue such. (6) Hyponatremia: Likely SIADH, will recommend to continue to monitor as an outpatient. (7) Elevated total protein: etiology? if this persists consider SPEP/UPEP - r/o MM. will defer to PCP. (8) DVT prophylaxis: heparin 5000 BID daughter extensively updated at bedside Spent 120 minutes with patient. This included hvac service tech line, discussion with daughter on phone, and in person. (9) SIAD (syndrome of inappropriate antidiuresis): sodium is 125. will monitor. place on fluid restriction and salt tablets. Admission and Anticipated Discharge Date Admission Date: January 23, 2020 Subjective 64 yo female reports no new complaints. No nausea or vomiting. Review of Systems Review of Systems: All systems reviewed & are unremarkable except as noted in HPI & below Physical Exam Physical Exam: Constitutional: well developed and well nourished; no acute distress Eyes: PERRL ENMT: external ear and nose normal, oropharynx normal Neck: trachea midline, no thyromegaly Respiratory: normal respiratory effort, lungs clear to auscultation Cardiovascular: Rate/Rhythm: regular rate and regular rhythm Heart Sounds: normal S1 and normal S2; no murmur Vessels: posterior tibial pulses present, dorsalis pedis pulses present and radial pulses present (2+ and symmetric ); no JVD Extremities: no edema Gastrointestinal (Abdomen): normal bowel sounds, soft, nontender, no hepatos plenomegaly Musculoskeletal: no cyanosis or clubbing, extremities motor strength 5/5 Skin: no rashes, warm and dry Neurologic: deep tendon reflexes 2+ bilaterally and moves all extremities; no focal motor deficits Psychiatric: Orientation: alert Lymphatic: no cervical lymphadenopathy Results & Data Results & Data ([facility]) Vital Signs (Past 12 Hours) Vital Signs Temp Pulse Resp BP Pulse Ox 01/25/20 20:20 161/92 H 01/25/20 15:41 36.7 C 77 18 155/83 H 98 PG Care Time/CCT Total # of Minutes Spent Total Time Spent with Patient: Total time spent is greater than 50% in coordination of care (as documented) at patient's floor/unit and/or counseling patient: Coding Level of Care Code 29559 Subseq Hosp Care Lvl 3 Diagnoses Hypertensive emergency I16.1 Headache R51 Headache chronicity pattern: acute headache Headache type: unspecified Intractability: not intractable Nausea & vomiting R11.2 Vomiting Intractability: non-intractable Vomiting type: unspecified Hyperlipidemia E78.2 Hyperlipidemia type: mixed hyperlipidemia UTI (urinary tract infection) N30.00 Hematuria presence: without hematuria Urinary tract infection type: acute cystitis Hyponatremia E87.1 Elevated total protein R77.8 DVT prophylaxis Z29.9 SIAD (syndrome of inappropriate antidiuresis) E22.2 Time Spent (min) 35 (1) UTI (urinary tract infection) Hematuria presence: without hematuria Urinary tract infection type: acute cystitis Qualified Code(s): N30.00 - Acute cystitis without hematuria (2) Headache Headache chronicity pattern: acute headache Headache type: unspecified Intractability: not intractable Qualified Code(s): R51 - Headache (3) Hyperlipidemia Hyperlipidemia type: mixed hyperlipidemia Qualified Code(s): E78.2 - Mixed hyperlipidemia (4) Nausea & vomiting Vomiting Intractability: non-intractable Vomiting type: unspecified Quali fied Code(s): R11.2 - Nausea with vomiting, unspecified
[2020-01-26 07:11] LABS: Hemoglobin 11.9 g/dL (12.0-16.0); Mean Corpuscular Hemoglobin 31.6 pg (25-34); Mean Corpuscular Volume 90.4 fL (80-100); Mean Platelet Volume 8.5 fL (7.4-10.4); Platelet Count 202 K/uL (130-400); RDW Coefficient of Variation 11.8 % (11.5-14.5); RDW Standard Deviation 38.6 fL (36.4-46.3); Red Blood Count 3.76 M/uL (4.2-5.4); White Blood Count 4.89 K/uL (4.8-10.8)
[2020-01-26 07:38] LABS: BUN Creatinine Ratio 17.7 (10-20); Calcium 8.5 mg/dl (8.5-10.1); Creatinine Clr Calc Pharmacy 55.1 ml/min; Est GFR (African American) 98.3; Est GFR (Non-African American) 84.8
[2020-01-26] MEDS: HEPARIN SOD 5,000 UNIT/0.5 ML VIAL SQ SCH (08:38)
[2020-01-26] MEDS: SODIUM CHLORIDE 1 GM TABLET PO SCH (08:38)
[2020-01-26] MEDS: cephALEXin 500 MG CAP PO SCH (08:39)
[2020-01-26] MEDS: VALSARTAN 80 MG TAB PO SCH (08:39)
[2020-01-26] MEDS: ESCITALOPRAM OXALATE 10 MG TAB PO SCH (08:39)
[2020-01-26] MEDS: POTASSIUM CHLORIDE 20 MEQ TABCR PO SCH (08:39)
[2020-01-26] MEDS: LABETALOL HCL 100 MG TAB PO SCH (08:40)
[2020-01-26 12:25] LABS: Potassium 3.9 mmol/L (3.5-5.1)
[2020-01-26] MEDS ORDERED: AMLODIPINE BESYLATE 5 MG TAB PO SCH (15:00)
--- NOTE | 2020-02-02 07:34 | Discharge Summary ---
Date of Service January 26, 2020 Admission HPI Per Admitting Provider 64yo [place] female with long-standing hypertension dating back 30 years presents from home due to concerns of elevated blood pressures, headaches, palpitations, a general unwell feeling, anxiety, and then nausea/emesis upon arrival in the [facility] ER. The patient's daughter was in the ER during my admission assessment and she provided all of the historical information. According to records the patient was hospitalized at [facility] on 01/18 and 01/19 for hypertensive emergency. Amlodipine was added to her anti-hypertensive regimen and her valsartan dose was increased. BPs improved and she was discharged home with her daughter. She felt well most of the day of discharge but later that night started to have headaches again. The daughter provided me a BP log from home. Most BPs on Wednesday, Wednesday and Wednesday were 130s to 160s systolic. Diastolics were <90. However, her systolics today were 170s or higher and diastolics were >100. No chest pain or dyspnea at any time since her recent hospitalization. Multiple times, however, the daughter described her mother having what sounds like palpitations. The patient also has sweats and feels warm when her BPs spike. She apparently has also not been eating well recently. Her PCP at [facility] recently started her on lexapro 5mg daily for anxiety as well as keflex for UTI (urine cx from recent admission grew 2 pathogens). In the ER the patient was given labetalol with marked improvement in systolic BP to the 150s. By the time of my assessment her headache was improved and her nausea/vomiting had stopped. Principal Diagnosis hypertensive urgency Discharge Exam Constitutional: well developed and well nourished; no acute distress Eyes: PERRL ENMT: external ear and nose normal, oropharynx normal Neck: trachea midline, no thyromegaly Respiratory: normal respiratory effort, lungs clear to auscultation Cardiovascular: Rate/Rhythm: regular rate and regular rhythm Heart Sounds: normal S1 and normal S2; no murmur Vessels: posterior tibial pulses present, dorsalis pedis pulses present and radial pulses present (2+ and symmetric ); no JVD Extremities: no edema Gastrointestinal (Abdomen): normal bowel sounds, soft, nontender, no hepatosplenomegaly Musculoskeletal: no cyanosis or clubbing, extremities motor strength 5/5 Skin: no rashes, warm and dry Neurologic: deep tendon reflexes 2+ bilaterally and moves all extremities; no focal motor deficits Psychiatric: Orientation: alert Lymphatic: no cervical lymphadenopathy Discharge Data Allergies Allergy/AdvReac Type Severity Reaction Status Date / Time No Known Allergies Allergy Verified 01/23/20 17:02 Consultations 01/23/20 17:54 ED Decision to Admit Stat Ordered Studies 01/23/20 16:33 CT head/brain wo con Stat 01/23/20 18:25 US duplex renal artery Routine Hospital Course (1) Hypertensive urgency: Hypertension has been difficult to control. Unsure if her nausea and vomiting are related to this as she has recently changed her outpatient which she takes for 2 years: deanxit. This is a medication that is not approved in the [place]. It contains flupentixol 0.5mg (or flupenthixol, an antipsychotic) and melitracen 10mg. She does not take droperidol. Will discharge patient on compazine (which replaces the flupenthixol) and continue the lexapro (instead of melitracen). will continue labetalol, valsartan and norvasc. She may benefit from switching some of her meds to evening doses. will move norvasc to the evening. I wonder if her nausea and vomiting is making her BP difficult to treat as she is not tolerating her mediciations. Will continue same dose as BP is better controlled. Since labetalol was so effective at reducing her BP will change her metoprolol to PO labetalol 100mg BID to start. Cont amlodipine 5mg daily. Cont valsartan. Renal artery stenosis is negative. (2) Headache: Likely 2nd to HTN emergency. Improved with marked reduction in BP in the ER. CT head neg. Recent CTA head/neck neg. improved. (3) Nausea & vomiting: Returned. As stated above, she is not taking her deanxit, that this is making her symptoms worse. Will switch to compazine and continue lexapro. (4) Hyperlipidemia: Cont statin agent. (5) UTI (urinary tract infection): Urine cx from recent admission w/ serratia and e.coli. Was taking keflex prescribed by her PCP. [facility], serratia not covered by keflex. likely asymptomatic bacteruria. will hold further antibiotics at this time. (6) Hyponatremia: Likely SIADH, will recommend to continue to monitor as an outpatient. recheck bmp on wednesday. (7) Elevated total protein: etiology? if this persists consider SPEP/UPEP - r/o MM. will defer to PCP. (8) DVT prophylaxis: heparin 5000 BID daughter extensively updated at bedside (9) SIAD (syndrome of inappropriate antidiuresis): sodium improved from 125 to 130 after placing on fluid restriction and salt tablets. unsure of cause. will defer to PCP. Total Time Total Time Spent Total Time Spent (In Minutes): 35 Total Time Includes: Examination of the Patient, Discharge Planning and Medication Reconciliation Discharge Plan Discharge Items Patient Disposition: Home - Self-Care Reason For Visit: HYPERTENSIVE EMERGENCY Discharge Diagnosis: Uncontrolled Hypertension Activity: Resume your previous activity Non-emergency contact: Primary Care Provider Call non-emergency contact if: you have any medication questions Follow-up/Referrals: Pam Bernal [Physician] - 02/02/20 1:30 pm Diet: Heart Healthy and Low Sodium (2gm) Addtl Attending Provider Instructions: You have been hospitalized for an acute medical problem. During your stay at [facility], we have made an effort to correct the problem that brought you to the hospital while keeping you as comfortable as possible. Medications were used to bring your condition under control and your discharge instructions will include directions for any medications you should take after leaving the hospital. Please make sure you see your Primary Care Provider as part of your follow up plan. Will recommend checking BMP on Wednesday. Recommend followup with PCP. Stopping antibiotic as Keflex not covering both bacteria and patient not having symptoms of infection. Likely asymptomatic bacteruria. Pending Studies at Discharge: No Stand-Alone Forms: My [facility], Smoking Cessation Medications and DC Order Prescriptions: New sodium chloride 1 gram Tablet 1 g PO TID Qty: 90 RF: 0 potassium chloride [Klor-Con M20] 20 mEq Tablet,Er Particles/Crystals 20 meq PO DAILY Qty: 3 RF: 0 hydroxyzine HCl 25 mg Tablet 25 mg PO HS PRN (Reason: nausea) Qty: 30 RF: 0 labetalol 100 mg Tablet 100 mg PO BID Qty: 60 RF: 0 escitalopram oxalate 10 mg Tablet 5 mg PO QAM Qty: 30 RF: 0 prochlorperazine maleate [Compazine] 5 mg tablet 5 mg PO Q6H PRN (Reason: nausea and vomiting) Qty: 30 RF: 0 Continued simvastatin 20 mg Tablet 20 mg PO HS RF: 0 valsartan 80 mg Tablet 160 mg PO DAILY Qty: 0 RF: 0 Changed amlodipine [Norvasc] 5 mg Tablet 5 mg PO QPM Qty: 30 RF: 0 Discontinued metoprolol tartrate 25 mg Tablet 25 mg PO BID Qty: 0 RF: 0 ondansetron HCl [Zofran] 4 mg tablet 4 mg PO TID PRN (Reason: Nausea) RF: 0 Discharge Orders: Discharge Order (Routine); Ordered 01/26/20 Ordered By: Lukasz Cohen/Other Patient Handouts: A1C Admission Data Admit Date/Time: 01/23/20 18:25 Attending Provider: Lukasz Sebastian Admit Provider: Manjinder Rizo Primary Care Provider: PCP,NO Other Providers: Manjinder Rizo Other Interventions: Discharge Summary Assessment (RN) Last Done: 01/26/20 13:56 DC Date/Time DO NOT enter until pt leaves facility: 01/26/20 14:56 Coding Level of Care Code D/C Day Management >30 mins Diagnoses Hypertensive urgency I16.0 Headache R51 Headache chronicity pattern: acute headache Headache type: unspecified Intractability: not intractable Nausea & vomiting R11.2 Vomiting Intractability: non-intractable Vomiting type: unspecified Hyperlipidemia E78.2 Hyperlipidemia type: mixed hyperlipidemia UTI (urinary tract infection) N30.00 Urinary tract infection type: acute cystitis Hematuria presence: without hematuria Hyponatremia E87.1 Elevated total protein R77.8 DVT prophylaxis Z29.9 SIAD (syndrome of inappropriate antidiuresis) E22.2
== END 2020-01-26 14:56 | disposition home or self-care (01) | DRG 305 ==
LOC: ED 16:17 → 1E 18:25 → SUATTDRO 18:25 → 1E 19:50 → 2N 01-24 12:20
DX: R11.2 Nausea with vomiting, unspecified; I16.1 Hypertensive emergency; E78.2 Mixed hyperlipidemia; E78.5 Hyperlipidemia, unspecified; E87.1 Hypo-osmolality and hyponatremia; N30.00 Acute cystitis without hematuria; R51 Headache